=== PATIENT | female | born 1965 | race Caucasian/White ===

== ENCOUNTER 2024-09-11 12:25 | Outpatient (CLI) | payer BC, SELFPAY | END 2024-09-11 12:26 | disposition home or self-care (01) | LOC: KYNREF 12:26 | PROVIDERS: PCP Family Medicine; Visit Provider Nurse Practitioner Family | DX: R39.9 Unspecified symptoms and signs involving the genitourinary system (principal); N39.0 Urinary tract infection, site not specified | CPT/HCPCS: 81001; 87086; 87186 ==

== ENCOUNTER 2024-09-22 08:23 | Outpatient (CLI) | payer BC, SELFPAY | END 2024-09-22 08:24 | disposition home or self-care (01) | PROVIDERS: PCP Family Medicine; Visit Provider Nurse Practitioner Family | DX: R82.90 Unspecified abnormal findings in urine (principal); Z13.228 Encounter for screening for other metabolic disorders; Z13.220 Encounter for screening for lipoid disorders; Z13.21 Encounter for screening for nutritional disorder; Z13.29 Encounter for screening for other suspected endocrine disorder; Z13.0 Encounter for screening for diseases of the blood and blood-forming organs and certain disorders involving the immune mechanism | CPT/HCPCS: 80053; 80061; 81001; 82306; 84443; 85025; 87086 ==

== ENCOUNTER 2025-05-18 09:49 | Outpatient (CLI) | payer BC, SELFPAY ==
[2025-05-18 12:56] LABS: Bacterial Vaginosis* Negative (Negative); Candida glab/krus NOT DETECTED (No Detected)
== END 2025-05-18 09:50 | disposition home or self-care (01) ==
LOC: NFLDREF 10:46
PROVIDERS: PCP Nurse Practitioner Family; Visit Provider Obstetrics & Gynecology
DX: N89.8 Other specified noninflammatory disorders of vagina (principal)
CPT/HCPCS: 81513; 87481; 87661